=== PATIENT | male | born 1945 | race Native Hawaiian/Other Pacific Islander ===

== ENCOUNTER 2017-11-15 14:35 | Emergency (ER) | payer OTHER ==
[~2017-11-15] VITALS: Ht 175.3 cm; Wt 682.7 kg
[~2017-11-15 14:35] MED LIST: NEXIUM 24HR20 MG PO; SAW PALMETTO1 CA1 PO
[2017-11-15 14:48] VITALS: BP 151/74; TEMP 98.3
[2017-11-15 15:43] LABS: PLATELET COUNT 231 K/uL (142-355)
[2017-11-15 15:52] LABS: POTASSIUM 3.9 mmol/L (3.6-5.2)
== END 2017-11-15 16:56 | disposition home or self-care (01) ==
LOC: ED 14:35
DX: R55 Syncope and collapse (principal)
CPT/HCPCS: 36415; 80053; 82550; 84484; 84681; 85027; 85610; 85730; 93005; 99284

== ENCOUNTER 2019-04-05 08:39 | Outpatient (CLI) | payer OTHER | END 2019-04-05 19:16 | disposition home or self-care (01) | LOC: US 08:39 | DX: N28.1 Cyst of kidney, acquired (principal) ==